=== PATIENT | female | born 1955 | race Caucasian/White ===

== ENCOUNTER → 2019-11-10 | Outpatient (CLI) | payer OTHER ==
[~2019-11-10] MED LIST: COREG25 MG; CRESTOR10 MG; ENBREL; LOSARTAN-HCTZ1 EACH; METHOTREXATE; NORCO 5-325 TA1 EACH PO; OMEPRAZOLE PO; PLAVIX 75 MG TA75 MG PO; PREDNISONE 20 M20 M1 PO; PROZAC PO; ZOCOR
== END ==
LOC: M.ULTRA 08:25
DX: K76.0 Fatty (change of) liver, not elsewhere classified (principal); K76.89 Other specified diseases of liver; R16.1 Splenomegaly, not elsewhere classified; N28.89 Other specified disorders of kidney and ureter; I77.811 Abdominal aortic ectasia; Z90.49 Acquired absence of other specified parts of digestive tract